=== PATIENT | male | born 1945 | race Caucasian/White ===

== ENCOUNTER → 2016-10-20 | Outpatient (CLI) | payer MEDICARE, OTHER ==
--- NOTE | 2016-10-23 10:39 | PE ---
Nuclear medicine PET/CT HISTORY: Solitary pulmonary nodule, R 91.1 Patient received 14.7 mCi F-18 FDG intravenously. Delayed scanning performed from the skull base to t he mid thighs. Localization and attenuation correction CT scan was performed. Exam correlated to CT c hest 10/08/2016 Neck and chest: Bilateral cervical nodes are present. SUV present greater on the right at 4. Ideal tonsils show some thickening with hypermetabolic uptake, SUV 4.7. Retrocaval pretracheal adenopathy is present, corresponding SUV is 3.3. Some small prevascular nodes are present. Pulmonary nodule in t he right upper lobe measures approximately 2.7 cm in greatest dimension. Corresponding hypermetabolic uptake, SUV is 5.6. Axillary nodes show a benign appearance SUV values 2. There is no pleural or per icardial effusion. Lungs show emphysematous changes. Patient is post median sternotomy. Heart is enla rged. There are coronary artery calcifications. Abdomen pelvis: Urinary bladder show no mass. There is a cystic focus at the upper pole of the left k idney. Gallstone is noted incidentally. Multiple mesenteric and retroperitoneal lymph nodes are prese nt. SUV values range approximately 3-4.2. Infrarenal abdominal aorta is aneurysmal measuring 4.7 cm. Diverticular changes associated with the sigmoid colon. Bilateral iliac nodes are present, external i liac chain on the left shows an enlarged node, SUV is 2.9. osseous structures: within normal limits, patient is post median sternotomy. Degenerative disc change s are present in the visualized spine. Facet arthropathy present in the lower lumbar spine. No suspic ious hypermetabolic uptake. IMPRESSION: Extensive adenopathy as described within the abdomen, chest, neck. Right upper lobe lung nodule shows abnormal hypermetabolic uptake.
== END | disposition home or self-care (01) ==
LOC: RADPETMAIN 10:42
PROVIDERS: ATTEND Internal Medicine Sleep Medicine
DX: R91.1 Solitary pulmonary nodule (principal); R59.1 Generalized enlarged lymph nodes
CPT/HCPCS: 78815; A9552

== ENCOUNTER 2016-11-13 13:14 | Day surgery (SDC) | payer MEDICARE, OTHER ==
[2016-11-07 10:26] VITALS: BMI 27.5
[~2016-11-13 13:14] MED LIST: DEXAMETHASONE SOD PHOSPHATE 10 MG/ML 1 ML VIAL IV ONE; HYDROmorphone 0.5 MG/0.5 ML SYRINGE IVP PRN; LACTATED RINGERS 1,000 ML IV SCH; ONDANSETRON 4 MG/2 ML VIAL IVP ONE; Pre Op ABX Message 1 EACH MISC MISCELLANE ONE
[2016-11-13 14:09] VITALS: RESP 16
[2016-11-13] MEDS ORDERED: LIDOCAINE 1% 20 ML VIAL (10MG/ML) FOR IV START INTRADERMA ONE (14:30)
[2016-11-13] MEDS ORDERED: GLYCOPYRROLATE 0.2 MG/ML 2 ML VIAL ONE (15:37)
[2016-11-13] MEDS ORDERED: LIDOCAINE 1% INJ 10MG/ML (20 ML MDV) ONE (15:37)
[2016-11-13] MEDS ORDERED: ROCURONIUM BROMIDE 10 MG/ML 10 ML VIAL IV ONE (15:37)
[2016-11-13] MEDS ORDERED: PROPOFOL 10 MG/ML 20 ML VIAL IV ONE (15:37)
[2016-11-13] MEDS ORDERED: SODIUM CHLORIDE 0.9% 50 ML with ceFAZolin 2,000 MG IV ONE ×2 (15:37)
[2016-11-13] MEDS ORDERED: SUCCINYLCHOLINE CHLORIDE 100 MG/5 ML SYR IV ONE (15:37)
[2016-11-13] MEDS ORDERED: ePHEDrine SULFATE/0.9% NACL/PF 50 MG/5 ML SYRINGE IV ONE (15:37)
[2016-11-13] MEDS ORDERED: VECURONIUM 10 MG VIAL IV ONE (15:37)
[2016-11-13] MEDS ORDERED: NEOSTIGMINE 1 MG/ML 10 ML VIAL ONE (15:37)
[2016-11-13] MEDS ORDERED: fentaNYL (PF) 50 MCG/ML 2 ML AMP ONE (15:37)
[2016-11-13] MEDS ORDERED: MIDAZOLAM 2 MG/2 ML VIAL ONE (15:37)
--- NOTE | 2016-11-13 16:52 | P.OP ---
Date of Procedure: 11/13/16 Preoperative Diagnosis: right upper lobe mass consistent with malignancy, mediastinal adenopathy Postoperative Diagnosis: same Procedure(s) Performed: mediastinoscopy with right paratracheal lymph node biopsy Anesthesia: MOJGAN Surgeon: Miguel Rodarte Partridge Farmer #1: Colton Clinton Estimated Blood Loss (ml): 5 IV fluids (ml): 400 Urine output (ml): 0 Pathology: other (right paratracheal lymph node for pathology and cultures including routine acid-fast and fungal cultures.) Condition: stable Disposition: PACU Indications for Procedure: 71-year-old male with a right upper lobe mass consistent with probable carcinoma. PET scan showed marketed uptake in the right upper lobe mass again consistent with carcinoma. There is right paratracheal adenopathy which does light up at a low level on PET. Mediastinoscopy was indicated for staging. Operative Findings: enlarged right paratracheal lymph nodes 2. Description of Procedure: patient was brought to the operating room, anesthetized and intubated. The patient was appropriately positioned for mediastinoscopy. The anterior neck and chest were sterilely prepped and draped. Transverse incision was made at the base of the neck across the midline. This was carried down through skin and subcutaneous tissues to the strap muscle. Strap muscles were incised vertically and dissection carried between the strap muscles to the thyroid isthmus. We encircled the thyroid isthmus and ligated it and divided it with the Bovie. This allowed access to the pump pretracheal plane. The pretracheal plane was developed into the mediastinum using finger dissection. The pretracheal plane was quite dense and fibrotic likely due to previous coronary bypass surgery. Once we had dissected a full finger length, the mediastinoscope was introduced. Dissection was continued downward to just above the darlene. The right paratracheal lymph nodes were identified. There were 2 enlarged right paratracheal lymph nodes just at the level of the aortic arch. These were dissected out and resected. Small amount of electrocautery was used for blood vessels feeding the lymph nodes. Once the lymph nodes were resected, the wound was packed with a gauze for 5 minutes. On removing the gauze there was no evidence of bleeding. Mediastinoscope was removed. Incision was closed with layers of Vicryl suture. The strap muscles were reapproximated and then the subcutaneous tissue and a subcuticular layers were closed. This was all performed with 3-0 Vicryl. A Dermabond dressing was applied. Specimen was examined on the back table. A small portion was sent for culture. The remainder was sent for pathology. Patient tolerated the procedure well. He was extubated and transferred to recovery. After observation in recovery the plan is to discharge patient home later today. Plan - Discharge Summary New Discharge Prescriptions: No Action Budesonide [Pulmicort] 0.5 mg INHALATION BID Albuterol Inhaler [Ventolin Hfa Inhaler] 1 - 2 puff INHALATION Q6HR PRN PRN Reason: Shortness Of Breath Gabapentin [Neurontin] 300 mg PO HS Carvedilol [Coreg] 12.5 mg PO BID Atorvastatin [Lipitor] 40 mg PO HS Aspirin [Adult Low Dose Aspirin EC] 162 mg PO DAILY Vit C/E/Zn/Coppr/Lutein/Zeaxan [Preservision Areds 2 Softgel] 1 each PO DAILY Lisinopril [Prinivil] 5 mg PO 1200 Krill Oil 500 mg PO DAILY Ipratropium-Albuterol Nebulize [Duoneb 0.5 mg-3 mg/3 ml Soln] 3 ml INHALATION QID Multivitamins, Thera [Multivitamin (formulary)] 1 tab PO DAILY Loratadine [Claritin] 10 mg PO DAILY Ferrous Sulfate [Feosol] 325 mg PO HS Betamethasone/Propylene Glyc [Betamethasone Dp Aug 0.05% Lot] 1 applic TOPICAL BID Discharge Medication List Albuterol Inhaler [Ventolin Hfa Inhaler] 1 - 2 puff INHALATION Q6HR PRN [History] Aspirin [Adult Low Dose Aspirin EC] 162 mg PO DAILY 10/01/16 [History] Atorvastatin [Lipitor] 40 mg PO HS 10/01/16 [History] Budesonide [Pulmicort] 0.5 mg INHALATION BID 10/01/16 [History] Carvedilol [Coreg] 12.5 mg PO BID 10/01/16 [History] Ferrous Sulfate [Feosol] 325 mg PO HS 10/01/16 [History] Gabapentin [Neurontin] 300 mg PO HS 10/01/16 [History] Ipratropium-Albuterol Nebulize [Duoneb 0.5 mg-3 mg/3 ml Soln] 3 ml INHALATION QID 10/01/16 [History] Krill Oil 500 mg PO DAILY 10/01/16 [History] Lisinopril [Prinivil] 5 mg PO 1200 10/01/16 [History] Loratadine [Claritin] 10 mg PO DAILY 10/01/16 [History] Multivitamins, Thera [Multivitamin (formulary)] 1 tab PO DAILY 10/01/16 [History ] Vit C/E/Zn/Coppr/Lutein/Zeaxan [Preservision Areds 2 Softgel] 1 each PO DAILY [History] Betamethasone/Propylene Glyc [Betamethasone Dp Aug 0.05% Lot] 1 applic TOPICAL BID 10/31/16 [History]
[2016-11-13 17:05] VITALS: TEMP 98.8
[2016-11-13] MEDS ORDERED: LACTATED RINGERS 1,000 ML IV ONE (17:09)
[2016-11-13 17:56] VITALS: BP 144/68; PULSE 60
== END 2016-11-13 18:18 | disposition home or self-care (01) ==
LOC: OR 13:14
PROVIDERS: ATTEND Thoracic Surgery (Cardiothoracic Vascular Surgery)
DX: C83.11 Mantle cell lymphoma, lymph nodes of head, face, and neck (principal); I10 Essential (primary) hypertension; I71.4 Abdominal aortic aneurysm, without rupture; I70.0 Atherosclerosis of aorta; E78.00 Pure hypercholesterolemia, unspecified; J44.9 Chronic obstructive pulmonary disease, unspecified; Z87.891 Personal history of nicotine dependence; I73.9 Peripheral vascular disease, unspecified; Z95.1 Presence of aortocoronary bypass graft; I25.10 Atherosclerotic heart disease of native coronary artery without angina pectoris; G62.9 Polyneuropathy, unspecified; Z79.82 Long term (current) use of aspirin; Z79.51 Long term (current) use of inhaled steroids; Z79.899 Other long term (current) drug therapy; Z88.5 Allergy status to narcotic agent
CPT/HCPCS: 39402; 88305; 88342; 88341; 87070; 87205; 87075; 87116; 87102; 87206; J2250; J2710; J2405; J2001; J3010; J0690; J0330; J2704; 86850; 86900; 86901

== ENCOUNTER 2018-08-07 13:28 | Inpatient (IN) | payer MEDICARE, OTHER ==
[2018-08-07] MEDS ORDERED: SODIUM CHLORIDE 0.9% 1,000 ML IV STA (13:58)
[2018-08-07] MEDS ORDERED: IPRATROPIUM-ALBUTEROL 3 ML NEB INHALATION STA (13:58)
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
[2018-08-07 14:36] LABS: Anisocytosis Moderate; Basophils % (A) 0 %; Eosinophils % (A) 1 %; HCT 21.8 % (39.0-53.0); HGB 7.3 gm/dL (13.0-17.5); Lymphocytes # (A) 0.1 k/uL (1.0-4.8); Lymphocytes % (A) 3 %; MCH 30.4 pg (25.0-35.0); MCHC 33.5 g/dL (31.0-37.0); MCV 90.8 fL (80.0-100.0); Macrocytosis Slight; Mean Platelet Volume 8.6; Monocytes # (A) 0.3 k/uL (0-1.0); Monocytes % (A) 9 %; Neutrophils % (A) 83 %; Platelet Count 219 k/uL (150-450); Poikilocytosis Slight; RDW 21.8 % (11.5-15.5); WBC 3.6 k/uL (3.8-10.6)
[2018-08-07 14:37] LABS: Partial Thromboplastin Time 27.7 sec (22.0-30.0); Prothrombin Time 10.6 sec (9.0-12.0)
[2018-08-07 14:38] LABS: ALT 26 U/L (21-72); AST 30 U/L (17-59); African American GFR (CKD) >90 (>60 ml/min/1.73 sqM); Albumin 3.4 g/dL (3.5-5.0); Alkaline Phosphatase 117 U/L (38-126); Anion Gap 12 mmol/L; Blood Urea Nitrogen 11 mg/dL (9-20); Calcium 8.7 mg/dL (8.4-10.2); Carbon Dioxide 27 mmol/L (22-30); Chloride 97 mmol/L (98-107); Glucose 111 mg/dL (74-99); Magnesium 1.8 mg/dL (1.6-2.3); Potassium 3.9 mmol/L (3.5-5.1); Sodium 136 mmol/L (137-145); Total Bilirubin 0.8 mg/dL (0.2-1.3); Total Protein 5.9 g/dL (6.3-8.2)
--- NOTE | 2018-08-07 15:26 | CT ---
EXAMINATION TYPE: CT brain wo con DATE OF EXAM: 08/07/2018 COMPARISON: None HISTORY: 73-year-old male with pain and confusion TECHNIQUE: Examination was done in axial plane without intravenous contrast. Coronal and sagittal r econstructions performed. CT DLP: 1151.4 mGycm Automated exposure control for dose reduction was used. FINDINGS: There is no evidence of acute intracranial hemorrhage, acute ischemic changes, mass, mass-effect, or extra-axial fluid collection. There is no effacement of cerebral sulci or basal subarachnoid cister ns. There is no hydrocephalus. There is no midline shift. Whitney-white matter distinction is preserv ed. Moderate to severe mucosal thickening left maxillary sinus. Moderate mucosal thickening throughout th e ethmoid air cells. Mastoid air cells well pneumatized. Orbits and globes appear intact. Mild patchy periventricular white matter hypodensity and some scattered patchy subcortical hypodensit y likely relating to changes of chronic small vessel ischemic disease. IMPRESSION: 1. Mild patchy changes of chronic small vessel ischemic disease. No acute intracranial abnormality se en. 2. Moderate chronic ethmoid and left maxillary sinusitis.
--- NOTE | 2018-08-07 15:33 | XR ---
EXAMINATION TYPE: XR chest 2V DATE OF EXAM: 08/07/2018 COMPARISON: Prior chest x-ray 01/01/2017 HISTORY: Difficulty breathing TECHNIQUE: Frontal and lateral views of the chest are obtained. FINDINGS: Patient is post median sternotomy. There are prominent lung volumes with flattening the he midiaphragms consistent with underlying COPD, emphysema. Interstitium is somewhat prominent, some imp roved aeration present in the right hemithorax. No pneumothorax or pleural effusion. Heart size is st able. IMPRESSION: There is improvement in aeration. Possible residual scarring in the right lung base. Cor relate to exclude pneumonia.
[2018-08-07] MEDS ORDERED: BENZONATATE 100 MG CAP PO PRN (18:08)
[2018-08-07] MEDS: IPRATROPIUM-ALBUTEROL 3 ML NEB INHALATION SCH ×2 (20:00→23:54)
[2018-08-07] MEDS: FORMOTEROL FUMARATE 20 MCG/2 ML NEBU INHALATION SCH (20:03)
[2018-08-07] MEDS: CLOPIDOGREL 75 MG TAB PO SCH (21:09)
[2018-08-07] MEDS: FERROUS SULFATE 325 MG TAB PO SCH (21:09)
[2018-08-07] MEDS: FAMOTIDINE 20 MG TAB PO SCH (21:09)
[2018-08-07] MEDS: ATORVASTATIN 40 MG TAB PO SCH (21:09)
[2018-08-07] MEDS: GABAPENTIN 300 MG CAP PO SCH (21:09)
[2018-08-07] MEDS: CARVEDILOL 12.5 MG TAB PO SCH (21:11)
[2018-08-07] MEDS: NON-FORMULARY DRUG (Krill Oil [Krill Oil] 500 MG) PO SCH (22:23)
[2018-08-07] MEDS: methylPREDNISolone SOD SUCCI 125 MG/2 ML VIAL IV SCH (23:57)
[2018-08-08] MEDS: IPRATROPIUM-ALBUTEROL 3 ML NEB INHALATION SCH ×6 (04:04→23:17)
[2018-08-08] MEDS: methylPREDNISolone SOD SUCCI 125 MG/2 ML VIAL IV SCH ×4 (06:08→23:28)
[2018-08-08 07:11] LABS: Glucose,Whole Blood 170 mg/dL (75-99)
[2018-08-08 08:11] LABS: Anisocytosis Moderate; Basophils % (A) 0 %; Eosinophils % (A) 1 %; HCT 20.9 % (39.0-53.0); Hypochromasia Slight; Lymphocytes # (A) 0.1 k/uL (1.0-4.8); Lymphocytes % (A) 4 %; MCH 30.9 pg (25.0-35.0); MCV 93.7 fL (80.0-100.0); Macrocytosis Slight; Mean Platelet Volume 8.1; Monocytes # (A) 0.1 k/uL (0-1.0); Monocytes % (A) 4 %; Neutrophils # (A) 1.9 k/uL (1.3-7.7); Neutrophils % (A) 90 %; Platelet Count 226 k/uL (150-450); Poikilocytosis Slight; RBC 2.23 m/uL (4.30-5.90); RDW 21.8 % (11.5-15.5); WBC 2.1 k/uL (3.8-10.6)
[2018-08-08 08:14] LABS: HGB 6.9 gm/dL (13.0-17.5)
[2018-08-08] MEDS: FORMOTEROL FUMARATE 20 MCG/2 ML NEBU INHALATION SCH ×2 (08:51→19:58)
[2018-08-08] MEDS: LORATADINE 10 MG TAB PO SCH (09:05)
[2018-08-08] MEDS: MULTIVITAMINS, THERA 1 EACH TAB PO SCH (09:05)
[2018-08-08] MEDS: VIT A,C & E-LUTEIN-MINERALS 1 EACH TAB PO SCH (09:05)
[2018-08-08] MEDS: GABAPENTIN 100 MG CAP PO SCH (09:05)
[2018-08-08] MEDS: ASPIRIN 81 MG PO SCH (09:05)
[2018-08-08] MEDS: LACTOBACILLUS ACIDOPH & BULGAR 1 EACH PACKET PO SCH (09:05)
[2018-08-08] MEDS: CARVEDILOL 12.5 MG TAB PO SCH ×2 (09:05→17:00)
[2018-08-08 12:06] VITALS: BMI 24.7
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
[2018-08-08 15:12] LABS: Anisocytosis Moderate; HGB 7.1 gm/dL (13.0-17.5); Hypochromasia Slight; MCH 30.6 pg (25.0-35.0); MCHC 32.4 g/dL (31.0-37.0); MCV 94.4 fL (80.0-100.0); Macrocytosis Slight; Mean Platelet Volume 8.6; Platelet Count 254 k/uL (150-450); Poikilocytosis Slight; RBC 2.33 m/uL (4.30-5.90); RDW 21.2 % (11.5-15.5); WBC 1.9 k/uL (3.8-10.6)
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
[2018-08-08 16:18] LABS: Band Neutrophils % 1 %; Lymphocytes # (M) 0.11 k/uL (1.0-4.8); Monocytes # (M) 0.04 k/uL (0-1.0); Myelocytes # (M) 0.02 k/uL (0); Myelocytes % 1 %; Neutrophils % (M) 90 %; Nucleated Red Blood Cells 0 /100 WBC (0-0); Poikilocytosis (M) Present; Polychromasia Present; Total Cells Counted 100
[2018-08-08 16:19] LABS: Large Platelets Present
[2018-08-08] MEDS: FILGRASTIM-SNDZ 480 MCG/0.8 ML SYRINGE SQ SCH (16:42)
[2018-08-08] MEDS ORDERED: FLUCONAZOLE 100 MG TAB PO ONE (19:40)
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
[2018-08-08] MEDS: BUDESONIDE 1 MG/2 ML NEBU INHALATION SCH (19:58)
[2018-08-08] MEDS: NON-FORMULARY DRUG (Krill Oil [Krill Oil] 500 MG) PO SCH (20:17)
[2018-08-08] MEDS: ATORVASTATIN 40 MG TAB PO SCH (20:26)
[2018-08-08] MEDS: FAMOTIDINE 20 MG TAB PO SCH (20:26)
[2018-08-08] MEDS: GABAPENTIN 300 MG CAP PO SCH (20:26)
[2018-08-08] MEDS: FERROUS SULFATE 325 MG TAB PO SCH (20:27)
[2018-08-08] MEDS: AMOXIC-POT CLAV 875-125MG 1 EACH TAB PO SCH (20:27)
[2018-08-08] MEDS: CLOPIDOGREL 75 MG TAB PO SCH (20:27)
[2018-08-08] MEDS: BENZONATATE 100 MG CAP PO SCH (20:29)
[2018-08-08 22:11] VITALS: RESP 16
[2018-08-09] MEDS: IPRATROPIUM-ALBUTEROL 3 ML NEB INHALATION SCH ×3 (03:32→12:35)
[2018-08-09] MEDS: methylPREDNISolone SOD SUCCI 125 MG/2 ML VIAL IV SCH ×2 (04:59→13:10)
[2018-08-09 05:43] VITALS: TEMP 97.6
[2018-08-09] MEDS ORDERED: PANTOPRAZOLE 40 MG TABLET PO SCH (07:30)
[2018-08-09] MEDS: CARVEDILOL 12.5 MG TAB PO SCH (08:05)
[2018-08-09] MEDS: AMOXIC-POT CLAV 875-125MG 1 EACH TAB PO SCH (08:05)
[2018-08-09] MEDS: LACTOBACILLUS ACIDOPH & BULGAR 1 EACH PACKET PO SCH (08:05)
[2018-08-09] MEDS: MULTIVITAMINS, THERA 1 EACH TAB PO SCH (08:05)
[2018-08-09] MEDS: ASPIRIN 81 MG PO SCH (08:05)
[2018-08-09] MEDS: GABAPENTIN 100 MG CAP PO SCH (08:05)
[2018-08-09] MEDS: LORATADINE 10 MG TAB PO SCH (08:05)
[2018-08-09] MEDS: VIT A,C & E-LUTEIN-MINERALS 1 EACH TAB PO SCH (08:06)
[2018-08-09] MEDS: BENZONATATE 100 MG CAP PO SCH (08:06)
[2018-08-09] MEDS: FILGRASTIM-SNDZ 480 MCG/0.8 ML SYRINGE SQ SCH (08:07)
[2018-08-09 08:21] LABS: ALT 23 U/L (21-72); AST 34 U/L (17-59); African American GFR (CKD) >90 (>60 ml/min/1.73 sqM); Albumin 2.9 g/dL (3.5-5.0); Alkaline Phosphatase 93 U/L (38-126); Anion Gap 13 mmol/L; Blood Urea Nitrogen 19 mg/dL (9-20); Calcium 8.5 mg/dL (8.4-10.2); Carbon Dioxide 22 mmol/L (22-30); Chloride 106 mmol/L (98-107); Glucose 135 mg/dL (74-99); Potassium 4.5 mmol/L (3.5-5.1); Sodium 141 mmol/L (137-145); Total Bilirubin 0.9 mg/dL (0.2-1.3); Total Protein 5.3 g/dL (6.3-8.2)
[2018-08-09] MEDS: FORMOTEROL FUMARATE 20 MCG/2 ML NEBU INHALATION SCH (08:54)
[2018-08-09] MEDS: BUDESONIDE 1 MG/2 ML NEBU INHALATION SCH (08:54)
[2018-08-09] MEDS ORDERED: FLUCONAZOLE 100 MG TAB PO SCH (09:00)
[2018-08-09 12:12] LABS: Anisocytosis Moderate; HCT 23.7 % (39.0-53.0); HGB 8.1 gm/dL (13.0-17.5); Hypochromasia Slight; MCH 30.5 pg (25.0-35.0); MCHC 34.2 g/dL (31.0-37.0); Mean Platelet Volume 9.2; Platelet Count 233 k/uL (150-450); Poikilocytosis Moderate; RBC 2.66 m/uL (4.30-5.90); RDW 21.8 % (11.5-15.5); WBC 13.6 k/uL (3.8-10.6)
[2018-08-09 12:20] LABS: MCV 88.9 fL (80.0-100.0)
[2018-08-09 12:53] VITALS: BP 144/65
[2018-08-09 12:59] VITALS: PULSE 84
--- NOTE | 2018-08-09 13:38 | P.PN ---
Subjective Progress Note Date: 08/09/18 Principal diagnosis: Chronic obstructive pulmonary disease, complicated by purulent tracheobronchitis. This is a very pleasant 73-year-old gentleman who was admitted with shortness of breath and found to have an acute exacerbation of his chronic obstructive pulmonary disease, complicated by purulent tracheobronchitis. No clear evidence of pneumonia. He is improved today compared to yesterday. Still with a loose nonproductive cough. No fever chills or night sweats. Maintaining good O2 saturations in the high 90s on 2 L/m per nasal cannula. He's been afebrile. White count 13.6. Hemoglobin 8.1. Creatinine 0.58. He is currently on Augmentin, Tessalon Perles, bronchodilators, IV Solu-Medrol. Objective - Vital Signs Vital signs: Vital Signs Temp 97.6 F 08/09/18 12:53 Pulse 56 L 08/09/18 12:53 Resp 16 08/09/18 12:53 BP 144/65 08/09/18 12:53 Pulse Ox 98 08/09/18 12:53 Intake & Output 08/08/18 08/09/18 08/09/18 18:59 06:59 18:59 Intake Total 160 310 Balance 160 310 Weight 82.554 kg Intake: Intake, IV Titration 160 Amount Sodium Chloride 0.9% 1, 160 000 ml @ 20 mls/hr IV . Q24H STA Rx#:[id number] Blood Product 0 310 Rc As-1 Unit 0 310 [id number] Other: Voiding Method Toilet Toilet Toilet # Voids 1 1 - Exam GENERAL EXAM: Alert, active, comfortable in no apparent distress. HEAD: Normocephalic. EYES: Normal reaction of pupils, equal size. NOSE: Clear with pink turbinates. THROAT: No erythema or exudates. NECK: No masses, no JVD. CHEST: No chest wall deformity. LUNGS: Equal air entry with end expiratory wheeze, few scattered rhonchi. CVS: S1 and S2 normal with no audible murmur, regular rhythm. ABDOMEN: No hepatosplenomegaly, normal bowel sounds, no guarding or rigidity. SPINE: No scoliosis or deformity SKIN: No rashes CENTRAL NERVOUS SYSTEM: No focal deficits, tone is normal in all 4 extremities. EXTREMITIES: There is no peripheral edema. No clubbing, no cyanosis. Peripheral pulses are intact. - Labs CBC & Chem 7: 08/09/18 06:46 08/09/18 06:46 Labs: Abnormal Lab Results - Last 24 Hours (Table) 08/07/18 08/08/18 08/08/18 Range/Units 14:10 13:55 13:55 WBC 1.9 L (3.8-10.6) k/uL RBC 2.33 L (4.30-5.90) m/uL Hgb 7.1 L (13.0-17.5) gm/dL Hct 22.0 L (39.0-53.0) % RDW 21.2 H (11.5-15.5) % Lymphocytes # (Manual) 0.11 L (1.0-4.8) k/uL Myelocytes # (Manual) 0.02 H (0) k/uL Creatinine (0.66-1.25) mg/dL Glucose (74-99) mg/dL Lactate Dehydrogenase 720 H (313-618) U/L Total Protein (6.3-8.2) g/dL Albumin (3.5-5.0) g/dL Crossmatch See Detail 08/09/18 08/09/18 Range/Units 06:46 06:46 WBC 13.6 H (3.8-10.6) k/uL RBC 2.66 L (4.30-5.90) m/uL Hgb 8.1 L (13.0-17.5) gm/dL Hct 23.7 L (39.0-53.0) % RDW 21.8 H (11.5-15.5) % Lymphocytes # (Manual) (1.0-4.8) k/uL Myelocytes # (Manual) (0) k/uL Creatinine 0.58 L (0.66-1.25) mg/dL Glucose 135 H (74-99) mg/dL Lactate Dehydrogenase (313-618) U/L Total Protein 5.3 L (6.3-8.2) g/dL Albumin 2.9 L (3.5-5.0) g/dL Crossmatch Assessment and Plan Assessment: Impression: #1 Acute exacerbation of chronic obstructive pulmonary disease, complicated by purulent tracheobronchitis. #2 History of lung cancer status post resection of the left upper lobe. #3 Non-Hodgkin's lymphoma. #4 History of esophageal cancer. #5 Coronary artery disease, status post coronary artery bypass grafting. #6 Hyperlipidemia. #7 Hypertension. Plan: The patient was seen and evaluated by Dr. Coelho. He is cleared for discharge from the pulmonary standpoint. Complete a course of antibiotics. Complete a prednisone taper. Continue his home pulmonary medications. Follow-up with Dr. Coelho in the office in 1-2 weeks' time. He is encouraged to call sooner with any recurrence of symptoms or other questions or concerns. I, the cosigning physician, performed a history & physical examination of the patient. Lungs sounds with few scattered rhonchi, end expiratory wheeze. Maintaining good O2 saturations in the 90s on room air. I discussed the assessment and plan of care with my nurse practitioner, Daphnie Arizmendi. I attest to the above note as dictated by her.
[2018-08-09 14:28] LABS: Band Neutrophils % 14 %; Lymphocytes # (M) 0.27 k/uL (1.0-4.8); Monocytes # (M) 0.27 k/uL (0-1.0); Neutrophils % (M) 82 %; Nucleated Red Blood Cells 0 /100 WBC (0-0); Total Cells Counted 100
[2018-08-09 14:29] LABS: Polychromasia Present; Toxic Granulation Present
[2018-08-09 14:30] LABS: Large Platelets Present
--- NOTE | 2018-08-10 19:29 | P.DS ---
Providers Date of admission: 08/07/18 18:05 Expected date of discharge: 08/09/18 Attending physician: Freddie Morin Consults: 08/07/18 18:05 Consult Physician Routine Consulting Provider: Kevin Coelho Consult Reason/Comments: COPD exacerbation, esophageal cancer, history of lung cancer Do you want consulting provider notified?: Yes Consult Physician Routine Consulting Provider: Alexx Kenny Consult Reason/Comments: Esophageal cancer, COPD exacerbation Do you want consulting provider notified?: Yes Primary care physician: Mustapha [facility] Course: Discharge diagnoses: -Acute COPD exacerbation and an ex-smoker -Acute oropharyngeal candidiasis from underlying chemotherapy and immunosuppression -Coronary artery disease with a prior history of bypass -Hyperlipidemia -Essential hypertension -Peripheral arterial disease -Peripheral neuropathy idiopathic -Patient's malignancies included non-Hodgkin's lymphoma, esophageal cancer, lung cancer -Bicytopenia likely from underlying chemotherapy Hospital course: This is a 73-year-old patient of Dr. Virgilio Courtney. 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 Also had left upper lobe resection for lung cancer. Also esophageal cancer. Type adenocarcinoma. Patient has received both chemotherapy and radiation treatment. Patient presently primarily respiratory symptoms. Increasing short of breath with difficulty breathing. Some white phlegm. Slight cough present. No fever no chills. Appetite is slightly down. No pain. Bowels have been a bit in irregular. Patient also lost some weight. Slight wheezing. Treated with bronchodilator steroids. And Diflucan. Doing much better, at the time of the discharge Physical examination: VITAL SIGNS: 97.6, 56, 16, 144/65, 98% on 2 L . HEART: First and second heart sounds are normal; no edema. LUNGS: Respiratory rate increased, decreased breath sounds n. ABDOMEN: Soft, nontender, liver spleen not palpable, no masses palpable. PSYCH: Alert and oriented x3; mood and affect normal. Investigations, reviewed in the clinical context: EKG tracing personally reviewed by me shows normal sinus rhythm -Chest x-rayfilm- reviewed by me shows possible scarring White count 3.6 hemoglobin 7.3 and repeat was 6.9 platelets 219 Potassium 3.9 BUN 11 creatinine 0.66 Disposition: Home Patient Condition at Discharge: Stable Plan - Discharge Summary Discharge Rx Participant: No New Discharge Prescriptions: New Amoxic-Pot Clav 875-125Mg [Augmentin 875-125] 1 each PO Q12HR #10 tab Fluconazole [Diflucan] 100 mg PO DAILY #7 tab predniSONE 0 mg PO DIRECTED #10 tab Continue Budesonide [Pulmicort] 0.5 mg INHALATION RT-BID Vit C/E/Zn/Coppr/Lutein/Zeaxan [Preservision Areds 2 Softgel] 1 cap PO DAILY Krill Oil 500 mg PO HS Multivitamins, Thera [Multivitamin (formulary)] 1 tab PO DAILY Loratadine [Claritin] 10 mg PO DAILY Ferrous Sulfate [Iron (65 MG Elemental)] 325 mg PO HS L.acidoph,Paracasei, B.lactis [Probiotic] 1 cap PO DAILY Benzonatate [Benzonatate Perle] 200 mg PO BID PRN PRN Reason: Cough Aspirin EC [Ecotrin Low Dose] 81 mg PO DAILY Gabapentin [Neurontin] 200 mg PO QAM Gabapentin 600 mg PO HS Atorvastatin [Lipitor] 40 mg PO HS Famotidine 40 mg PO HS Clopidogrel [Plavix] 75 mg PO HS Carvedilol [Coreg] 12.5 mg PO BID Formoterol Fumarate [Perforomist] 20 mcg INHALATION RT-BID Discharge Medication List Budesonide [Pulmicort] 0.5 mg INHALATION RT-BID 10/01/16 [History] Krill Oil 500 mg PO HS 10/01/16 [History] Loratadine [Claritin] 10 mg PO DAILY 10/01/16 [History] Multivitamins, Thera [Multivitamin (formulary)] 1 tab PO DAILY 10/01/16 [History] Vit C/E/Zn/Coppr/Lutein/Zeaxan [Preservision Areds 2 Softgel] 1 cap PO DAILY 10/01/16 [History] Ferrous Sulfate [Iron (65 MG Elemental)] 325 mg PO HS 11/26/16 [History] L.acidoph,Paracasei, B.lactis [Probiotic] 1 cap PO DAILY 05/16/17 [History] Aspirin EC [Ecotrin Low Dose] 81 mg PO DAILY 08/07/18 [History] Atorvastatin [Lipitor] 40 mg PO HS 08/07/18 [History] Benzonatate [Benzonatate Perle] 200 mg PO BID PRN 08/07/18 [History] Carvedilol [Coreg] 12.5 mg PO BID 08/07/18 [History] Clopidogrel [Plavix] 75 mg PO HS 08/07/18 [History] Famotidine 40 mg PO HS 08/07/18 [History] Formoterol Fumarate [Perforomist] 20 mcg INHALATION RT-BID 08/07/18 [History] Gabapentin 600 mg PO HS 08/07/18 [History] Gabapentin [Neurontin] 200 mg PO QAM 08/07/18 [History] Amoxic-Pot Clav 875-125Mg [Augmentin 875-125] 1 each PO Q12HR #10 tab 08/09/18 [Rx] Fluconazole [Diflucan] 100 mg PO DAILY #7 tab 08/09/18 [Rx] predniSONE 0 mg PO DIRECTED #10 tab 08/09/18 [Rx] Follow up Appointment(s)/Referral(s): Mustapha Pickett DO [Primary Care Provider] - 1-2 days (The office was closed at the time of your discharge. Please call the office on 08/11/2018 to schedule your follow-up appointment.) Kevin Coelho DO [Doctor of Osteopathic Medicine] - 1 Week (The office was closed at the time of your discharge. Please call the office on 08/11/2018 to schedule your follow-up appointment.) Tiago Zavala MD [STAFF PHYSICIAN] - 1 Week (The office was closed at the time of your discharge. Please call the office on 08/11/2018 to schedule your follow-up appointment.) Ambulatory/Diagnostic Orders: Complete Blood Count w/diff [LAB.AMB] Time Frame: 3 Days, Location: None Selected Activity/Diet/Wound Care/Special Instructions: Follow up with Dr. Pickett regarding wheelchair order - His office sent order to [facility] Disposition: HOME SELF-CARE
== END 2018-08-09 14:18 | disposition home or self-care (01) | DRG 191 ==
LOC: EC 13:28 → 3NMEDONC 18:05
PROVIDERS: ADMIT Hospitalist; ATTEND Hospitalist
PROC: 30233N1 Transfusion of Nonautologous Red Blood Cells into Peripheral Vein, Percutaneous Approach (ICD-10-PCS; principal; 2018-08-08)
DX: J44.1 Chronic obstructive pulmonary disease with (acute) exacerbation (principal); B37.0 Candidal stomatitis; B37.89 Other sites of candidiasis; C15.9 Malignant neoplasm of esophagus, unspecified; C83.10 Mantle cell lymphoma, unspecified site; D70.1 Agranulocytosis secondary to cancer chemotherapy; D64.9 Anemia, unspecified; I25.2 Old myocardial infarction; E78.5 Hyperlipidemia, unspecified; G60.9 Hereditary and idiopathic neuropathy, unspecified; I10 Essential (primary) hypertension; I25.10 Atherosclerotic heart disease of native coronary artery without angina pectoris; K57.90 Diverticulosis of intestine, part unspecified, without perforation or abscess without bleeding; I73.9 Peripheral vascular disease, unspecified; T45.1X5A Adverse effect of antineoplastic and immunosuppressive drugs, initial encounter; Z77.098 Contact with and (suspected) exposure to other hazardous, chiefly nonmedicinal, chemicals; Z79.82 Long term (current) use of aspirin; Z79.899 Other long term (current) drug therapy; Z85.118 Personal history of other malignant neoplasm of bronchus and lung; Z87.891 Personal history of nicotine dependence; Z90.49 Acquired absence of other specified parts of digestive tract; Z95.1 Presence of aortocoronary bypass graft; Z96.651 Presence of right artificial knee joint; Z98.42 Cataract extraction status, left eye; Z98.41 Cataract extraction status, right eye; Z96.1 Presence of intraocular lens; Z92.21 Personal history of antineoplastic chemotherapy; Z92.3 Personal history of irradiation; Z80.6 Family history of leukemia; Z82.3 Family history of stroke
CPT/HCPCS: 36415; 70450; 71046; 80053; 83615; 83735; 83880; 84484; 85025; 85610; 85730; 86850; 86900; 86901; 86920; 93005; 94640; 94760; 99285

== ENCOUNTER → 2018-09-26 | Outpatient (CLI) | payer MEDICARE, OTHER ==
--- NOTE | 2018-09-26 21:06 | MR ---
EXAMINATION TYPE: MR brain wo/w con DATE OF EXAM: 09/26/2018 COMPARISON: Prior CT brain 08/07/2018 HISTORY: AMS, hx lung/non-hodgkins/esophageal ca TECHNIQUE: Multiplanar, multisequence images of the brain and brainstem is performed without and with IV contras t, utilizing 7.5 mL intravenous Gadavist . FINDINGS: Diffusion weighted images demonstrate no evidence of a recent infarct or other diffusion ab normality. There is no extra-axial fluid collection. Subcortical, juxtacortical, pericallosal confl uent and scattered hyperintensities are present on inversion recovery T2-weighted sequences, approxim ately 40 lesions are present. The ventricular system and cisternal spaces are normal in size and appe arance. The brain volume is age appropriate. Midline structures demonstrate normal morphology. The craniocervical junction appears within normal limits. Post contrast images demonstrate no abnormal enhancement. The dural venous sinuses appear pa tent. The visualized sinuses are remarkable for inflammatory change in the ethmoid air cells, maxilla ry sinuses and the globes are intact. IMPRESSION: Age-related changes of atrophy and probable chronic small vessel ischemia. Extensive sinu s disease. No enhancing mass to suggest metastatic disease.
== END | disposition home or self-care (01) ==
LOC: RADMRIMAIN 19:22
PROVIDERS: ATTEND Internal Medicine Hematology & Oncology
DX: G31.1 Senile degeneration of brain, not elsewhere classified (principal)
CPT/HCPCS: 70553; A9585